=== PATIENT | male | born 1985 | race Caucasian/White ===

== ENCOUNTER 2019-06-14 00:24 | Emergency (ER) | payer MEDICAID ==
[~2019-06-14] VITALS: Ht 177.8 cm; Wt 68.0 kg
[2019-06-14] MEDS ORDERED: SODIUM CHLORIDE 0.9% 1,000 ML IV ONE (01:42)
[2019-06-14] MEDS ORDERED: DIPHENHYDRAMINE 50MG/ML VIAL IV ONE (01:45)
[2019-06-14] MEDS ORDERED: METOCLOPRAMIDE HCL 10MG/2ML VIAL IV ONE (01:45)
[2019-06-14] MEDS ORDERED: KETOROLAC 30MG/ML VIAL IV ONE (01:45)
[2019-06-14 04:06] VITALS: BP 142/80
== END 2019-06-14 04:46 | disposition home or self-care (01) ==
LOC: ER 00:24
DX: G43.909 Migraine, unspecified, not intractable, without status migrainosus (principal); Z59.0 Homelessness; I49.9 Cardiac arrhythmia, unspecified
CPT/HCPCS: 96374; 96375; 99284; J1200; J1885; J2765; J7030